=== PATIENT | female | born 1940 | race Caucasian/White ===

== ENCOUNTER 2025-08-13 11:28 | Emergency (ER) | payer MEDICARE, OTHER ==
[2025-08-13 12:36] VITALS: RESP 18; O2SAT 95
--- NOTE | 2025-08-13 12:41 | XRAY ---
Indication: Pain following fall. Comparison: None 3 view left elbow demonstrates osteopenia. No other bony, articular, or soft tissue abnormalities.
--- NOTE | 2025-08-13 12:41 | XRAY ---
Indication: Pain following fall. Comparison: None 3 view left shoulder demonstrates osteopenia, mild AC degenerative arthropathy, mild multilevel thoracic degenerative spondylosis, and CT proven benign splenic macrocalcification. Visualized underinflated lungs demonstrates minimal left base infiltrate versus atelectasis. No other abnormalities.
--- NOTE | 2025-08-13 13:19 | ERPHSYRPT ---
- History of Present Illness Time Seen by Provider: 08/13/25 12:20 Source: patient Exam Limitations: no limitations Patient Subjective Stated Complaint: Pt fell and injured her left shoulder, paramedics stated that it was displaced upon their arrival and when they moved the arm it "popped" back in place Triage Nursing Assessment: Pt brought to the ER by her daughter in law, hypertensive, tachycardic, denies pain while sitting, pulses normal, skin n/w/d, pain to the left shoulder with movement, denies LOC, denies hitting head, doesn't appear to be in any distress Physician History: Patient is a 35-year-old female history of peripheral neuropathy hypertension presents to our ED via EMS for evaluation of pain to her left shoulder. Patient states she was at home and her bathroom cleaning. Patient states she slipped on the wet floor and fell onto her left shoulder. Patient believes she dislocated her shoulder but states that "popped back in place". No other injuries reported. No BHT or LOC no neck pain. Cervical spine cleared clinically. Patient's [id number] is at bedside. They voiced no other complaints or concerns at this time. Patient declined pain medication Portions of this note were created with voice recognition technology. There may be grammatical, spelling, punctuation or sound alike errors Timing/Duration: today Severity: moderate Modifying Factors: Improves With: movement Associated Symptoms: denies symptoms Allergies/Adverse Reactions: No Known Drug Allergies Allergy (Verified 08/13/25 12:04) Home Medications: Cholecalciferol (Vitamin D3) [Vitamin D3] 1,250 mcg PO DAILY 08/13/25 [History] Clopidogrel Bisulfate [Clopidogrel] 75 mg PO DAILY 08/13/25 [History] Duloxetine HCl 60 mg PO DAILY 08/13/25 [History] Famotidine 20 mg [Pepcid 20 MG] 20 mg PO BID 08/13/25 [History] Gabapentin [Neurontin ] 300 mg PO BID 08/13/25 [History] Losartan Potassium 25 mg PO BID 08/13/25 [History] Meclizine HCl 25 mg [Antivert 25 mg] 25 mg PO TID 08/13/25 [History] Memantine HCl 10 mg PO DAILY 08/13/25 [History] Hx Tetanus, Diphtheria Vaccination/Date Given: No Hx Influenza Vaccination/Date Given: Yes Hx Pneumococcal Vaccination/Date Given: Yes Travel Risk - International Travel Have you traveled outside of the country in past 3 weeks: No - Emerging Infectious Disease Are you exhibiting symptoms associated with any current EIDs: No - Review of Systems All Other Systems: Reviewed and Negative - Past Medical History Pertinent Past Medical History: Yes Neurological History: Peripheral Neuropathy Cardiac History: Hypertension Respiratory History: Pneumonia Endocrine Medical History: No Pertinent History Musculoskeletal History: Osteoarthritis Other Medical History: RIGHT TKA 04/2018. - Past Surgical History Past Surgical History: Yes Gastrointestinal: Cholecystectomy Musculoskeletal: Joint Replacement Other Surgical History: right knee - Social History Smoking Status: Never smoker Exposure to second hand smoke: No Drug Use: none - Social Determinants of Health Will the patient participate in the screening: Yes Do you worry about a steady place to live?: No Do you have any problems with any of the following?: No known problems In the past 12 months,have you had to go without utilities?: No Transportation Issues: No Has anyone in your support network made you feel unsafe?: No Have you or anyone in your house had to go w/o enough food: No - Nursing Vital Signs Nursing Vital Signs: Initial Vital Signs Blood Pressure 171/120 08/13/25 12:00 O2 Sat by Pulse Oximetry 95 08/13/25 12:00 Pain Scale Pain Intensity 2 - Physical Exam General Appearance: no apparent distress, alert, other Eye Exam: PERRL/EOMI, eyes nml inspection Ears, Nose, Throat Exam: normal ENT inspection, moist mucous membranes Neck Exam: normal inspection, full range of motion Respiratory Exam: normal breath sounds, lungs clear, airway intact, No respiratory distress Cardiovascular Exam: regular rate/rhythm, normal heart sounds, normal peripheral pulses Gastrointestinal/Abdomen Exam: soft, normal bowel sounds, No tenderness, No mass Back Exam: normal inspection, normal range of motion, No CVA tenderness, No vertebral tenderness Extremity Exam: normal inspection, normal range of motion, pelvis stable Neurologic Exam: alert, oriented x 3, cooperative, normal mood/affect, sensation nml, No motor deficits Skin Exam: normal color, warm, dry, No rash Lymphatic Exam: No adenopathy SpO2 Interpretation: normal SpO2: 95 O2 Delivery: Room Air - Course Nursing assessment & vital signs reviewed: Yes - Radiology Exams Shoulder X-ray Interpretation: Teleradiologist Report (3 view left shoulder demonstrates osteopenia, mild AC degenerative) Elbow X-ray Interpretation: Teleradiologist Report (3 view left elbow demonstrates osteopenia. No other bony, articular, or soft) Ordered Tests: Active Orders 24 hr Category Date Time Status ELBOW (MINIMUM 3 VIEWS) Stat Exams 08/13/25 12:04 Completed SHOULDER Stat Exams 08/13/25 12:04 Completed - Progress Progress: improved Progress Note: Patient is a 35-year-old female history of peripheral neuropathy hypertension presents to our ED via EMS for evaluation of pain to her left shoulder. Patient states she was at home and her bathroom cleaning. Patient states she slipped on the wet floor and fell onto her left shoulder. Patient believes she dislocated her shoulder but states that "popped back in place". Physical exam reveals tenderness to palpation at the left shoulder and left elbow. Overlying soft tissue intact. No open or draining lesions. The involved left upper extremity is neurovascular intact distally compartments are soft cap refill less than 2 seconds. Patient declined pain medication. X-ray negative for fracture or dislocation. No acute pathology. However in light of her possible shoulder dislocation/auto reduction patient referred to orthopedics for further evaluation of possible muscular, ligamentous or tendinous injury. Patient placed in left upper extremity sling. Patient neurovasc intact distally post splint application. [id number] at bedside. They voiced no other complaints or concerns at this time. History obtained from patient and [id number] who is at the bedside. Differential diagnosis includes bone fracture, ligamentous injury, tendinous injury, contusion Saman independently reviewed and interpreted the x-ray of the left shoulder and left elbow. No fracture or dislocation. However this was of preliminary read. Formal read confirms no fracture or dislocation. Chronic findings observed. Portions of this note were created with voice recognition technology. There may be grammatical, spelling, punctuation or sound alike errors Complexity of problems addressed is moderate acute complicated. No critical care time. Complex of data reviewed and analyzed is moderate. Test ordered chest reviewed results analyzed and correlated clinically with history and physical exam. Risk of complication and or risk of morbidity/mortality of patient management is low. Vital stable. Time spent to discharge patient approximately 15 minutes. Plan of care established for shared decision making. No social determinants of health present to impede follow-up. Portions of this note were created with voice recognition technology. There may be grammatical, spelling, punctuation or sound alike errors 08/13/25 13:25 Counseled pt/family regarding: diagnosis, need for follow-up, rad results - Departure Departure Disposition: Home Clinical Impression: Fall, Shoulder pain Condition: Stable Critical Care Time: No Referrals: JOCELYN CALDERON [Primary Care Provider, [facility]] - Follow up/PCP as directed Additional Instructions: Discharge/Care Plan HARLEY EDMOND was seen on 08/13/25 in the Emergency Room. The patient was counseled regarding Diagnosis,Lab results, Imaging studies, need for follow up and when to return to the Emergency Room. Prescriptions given: Discharge Note I have spoken with the patient and/or caregivers. I have explained the patient's condition, diagnosis and treatment plan based on the information available to me at this time. I have answered the patient's and/or caregiver's questions and addressed any concerns. The patient and/or caregivers have as good understanding of the patient's diagnosis, condition and treatment plan as can be expected at this point. The vital signs have been stable. The patient's condition is stable and appropriate for discharge from the emergency department. The patient will pursue further outpatient evaluation with the primary care physician or other designated or consulting physician as outlined in the discharge instructions. The patient and/or caregivers are agreeable to this plan of care and follow-up instructions have been explained in detail. The patient and/or caregivers have received these instruction. The patient/and or caregivers are aware that any significant change in condition or worsening of symptoms should prompt an immediate return to this or the closest emergency department or call 911. Outpatient Orders: Ortho Referral Time Frame: 1 Day, Facility: [facility]. Hosp, Location: [facility]
[2025-08-13 13:24] VITALS: BP 166/102; PULSE 117
[2025-08-13 14:01] LABS: Glucose, Urine Negative (Negative); Protein,Urine Dip Negative (Negative); RBC 0-2 /HPF (0-5); WBC 0-2 /HPF (0-5)
== END 2025-08-13 13:40 | disposition home or self-care (01) ==
LOC: ED 11:28
DX: Z04.3 Encounter for examination and observation following other accident (principal); M25.512 Pain in left shoulder; I10 Essential (primary) hypertension; Z79.02 Long term (current) use of antithrombotics/antiplatelets; Z79.899 Other long term (current) drug therapy